=== PATIENT | female | born 1950 | race Caucasian/White ===

== ENCOUNTER 2017-02-01 08:45 | Emergency (ER) | payer OTHER ==
[~2017-02-01] VITALS: Ht 165.1 cm; Wt 79.0 kg
[2017-02-01 08:49] VITALS: Ht 165.1 cm; Wt 79.0 kg
--- NOTE | 2017-02-01 10:23 | RADRPT ---
PROCEDURE: XR Chest. CLINICAL INDICATION: Chest Pain. TECHNIQUE: Single frontal view of the chest was obtained COMPARISON: None FINDINGS: There is fullness in the superior mediastinum, likely exaggerated by the portable nature of the film . The cardiac silhouette is unremarkable. The lungs are clear. There is no pleural effusion or pneumothorax. The bones and soft tissue show no acute change. IMPRESSION: No acute abnormalities are identified on this single view. RPTAT:AAJJ Physician Melissa Date Time Electronically viewed and signed by Physician Melissa on 02/01/2017 10:23 JUSTIN/
[2017-02-01] MEDS ORDERED: ASPI-664 PO (10:30)
[2017-02-01] MEDS ORDERED: SIMV10TA PO (10:35)
[2017-02-01] MEDS ORDERED: HYDR12.58 PO (10:35)
[2017-02-01] MEDS ORDERED: LOSA25TA5 PO (10:36)
[2017-02-01] MEDS ORDERED: RANI150T5 PO (10:36)
--- NOTE | 2017-02-01 10:43 | ERD ---
ER Documentation Chief Complaint Date/Time DATE: 02/01/17 TIME: 10:39 Chief Complaint CHEST PAIN , LT ARM PAIN AND NUMBNESS X 3 DAYS , WORSE TODAY HPI Patient is a 67-year-old female who presents with gradual onset, constant, moderate, dull pain to her left upper chest, shoulder, lateral neck, and left arm for the last 4-5 days. She states that it occasionally subsides, but is generally present throughout the day. Is now been present continuously since 5: 30 AM. She reports feeling mild shortness of breath that she describes as not being able to take a deep breath. She denies pain on deep inspiration. She reports intermittent numbness to her left arm. She denies worsening of symptoms with exertion. She reports that certain movements of her neck exacerbate symptoms. ROS All systems reviewed and are negative except as per history of present illness. Medications Home Meds Active Scripts Cyclobenzaprine Hcl* (Cyclobenzaprine Hcl*) 10 Mg Tablet, 10 MG PO Q8 Y for PAIN , #21 TAB Prov:CELESTE CARPIO MD 02/01/17 Ibuprofen* (Ibuprofen*) 600 Mg Tablet, 600 MG PO Q8, #20 TAB Prov:CELESTE CARPIO MD 02/01/17 Reported Medications Losartan Potassium* (Losartan Potassium*) 25 Mg Tablet, 25 MG PO DAILY, TAB 02/01/17 Ranitidine Hcl* (Ranitidine Hcl*) 150 Mg Tablet, 150 MG PO Q12 Y for PRN, #60 TAB 02/01/17 Hydrochlorothiazide* (Hydrochlorothiazide*) 12.5 Mg Tablet, 12.5 MG PO QAM, #30 TAB 02/01/17 Simvastatin* (Zocor*) 10 Mg Tablet, 5 MG PO QHS, #30 TAB 02/01/17 Aspirin* (Aspirin* EC) 81 Mg Tablet.dr, 81 MG PO DAILY, TAB 02/01/17 Allergies Allergies: Coded Allergies: No Known Allergy (Unverified , 02/01/17) PMhx/Soc Past medical history: Hypertension, hyperlipidemia Past surgical history: No recent surgery Social history: Denies tobacco or alcohol, denies illicit drugs History of Surgery: No Anesthesia Reaction: No Hx Neurological Disorder: No Hx Respiratory Disorders: No Hx Cardiac Disorders: No Hx Psychiatric Problems: No Hx Miscellaneous Medical Probl: Yes (HTN, Cholesterol) Hx Alcohol Use: No Hx Substance Use: No Hx Tobacco Use: No Smoking Status: Never smoker FmHx Family History: diabetes, No coronary disease Physical Exam Vitals Vital Signs Date Time Temp Pulse Resp B/P Pulse Ox O2 Delivery O2 Flow Rate FiO2 02/01/17 14:56 98.1 76 18 142/84 100 Room Air 02/01/17 11:36 98.3 62 17 136/92 100 Room Air 02/01/17 08:49 98.2 72 18 197/97 96 Physical Exam Const: Alert, no acute distress Head: Atraumatic Eyes: Normal Conjunctiva, No pallor, no icterus ENT: Normal External Ears, Nose and Mouth.Mucous membranes moist Neck: Full range of motion..~ No meningismus.Left paraspinal tenderness. Neck extension exacerbates pain in her left arm. Resp: Clear to auscultation bilaterally, No wheezes, no rales. Left upper chest tenderness, palpation reproduces symptoms. Cardio: Regular rate and rhythm, no murmurs Abd: Soft, non tender, non distended. Skin: No petechiae or rashes Back: No midline or flank tenderness Ext: No cyanosis, or edema Neur: Awake and alert, Cranial nerves II through XII intact bilaterally, strength and sensation full in 4 extremities. Psych: Normal Mood and Affect Result Diagram: 02/01/1715 02/01/17 0915 Results 24 hrs Laboratory Tests Test 02/01/17 09:15 White Blood Count 8.310^3/ul Red Blood Count 4.5610^6/ul Hemoglobin 13.8g/dl Hematocrit 42.9% Mean Corpuscular Volume 94.1fl Mean Corpuscular Hemoglobin 30.3pg Mean Corpuscular Hemoglobin Concent 32.2g/dl Red Cell Distribution Width 13.0% Platelet Count 80436^3/UL Mean Platelet Volume 13.9fl Neutrophils % 76.0% Lymphocytes % 17.4% Monocytes % 5.7% Eosinophils % 0.1% Basophils % 0.6% Nucleated Red Blood Cells % 0.0/100WBC Neutrophils # (Manual) 6.310^3/ul Lymphocytes # 1.410^3/ul Monocytes # 0.510^3/ul Eosinophils # 0.010^3/ul Basophils # 0.110^3/ul Nucleated Red Blood Cells # 0.010^3/ul Sodium Level 146mmol/L Potassium Level 4.0mmol/L Chloride Level 105mmol/L Carbon Dioxide Level 31mmol/L Anion Gap 14 Blood Urea Nitrogen 16mg/dl Creatinine 0.71mg/dl Glucose Level 115mg/dl Calcium Level 9.4mg/dl Total Bilirubin 0.1mg/dl Direct Bilirubin 0.00mg/dl Indirect Bilirubin 0.1mg/dl Aspartate Amino Transf (AST/SGOT) 25IU/L Alanine Aminotransferase (ALT/SGPT) 31IU/L Alkaline Phosphatase 115IU/L Troponin I < 0.012ng/ml B-Type Natriuretic Peptide 203PG/ML Total Protein 8.3g/dl Albumin 4.3g/dl Globulin 4.00g/dl Albumin/Globulin Ratio 1.07 Procedures/MDM EKG read by me: Time 859, rate 71 Rhythm: Normal sinus [place]: Normal Intervals: Normal ST-T waves: no ischemic changes Ectopy: No Q-waves: No Impression: No evidence of ischemia or arrhythmia MDM: Patient is a 67-year-old female who presents with pain in her left upper chest, shoulder, neck and left arm. On exam she is reproducible pain with signs of muscle spasm as well as radicular findings with worsening symptoms with neck extension. Her symptoms are not suggestive of coronary ischemia, pulmonary embolism, or aortic dissection. She has a normal chest x-ray. She has a normal EKG. She has a negative troponin in the setting of constant symptoms for 4 days. There is no neurologic deficit or findings to suggest a central nervous system etiology. I will discharge the patient with Motrin and Flexeril prescriptions, and advised her to follow-up further with her PMD. Advised her on the use of a heating pad. I have advised her on return precautions. Departure Diagnosis: Primary Impression: Cervical radiculopathy Additional Impression: Chest wall pain Condition: CELESTE Estrella MD Feb 01, 2017 10:43
[2017-02-01 12:27] LABS: ABNORMAL IP MESSAGE 1; BASOPHIL # 0.1 10^3/ul (0.0-0.1); BASOPHILS % 0.6 % (0.0-2.0); EOSINOPHILS % 0.1 % (0.0-7.0); HEMATOCRIT 42.9 % (37.0-47.0); HEMOGLOBIN 13.8 g/dl (12.0-16.0); LYMPHOCYTES # 1.4 10^3/ul (0.8-2.9); LYMPHOCYTES % 17.4 % (15.0-51.0); MEAN CORPUSCULAR HEMOGLOBIN 30.3 pg (29.0-33.0); MEAN CORPUSCULAR HGB CONC 32.2 g/dl (32.0-37.0); MEAN CORPUSCULAR VOLUME 94.1 fl (82.0-101.0); MEAN PLATELET VOLUME 13.9 fl (7.4-10.4); MONOCYTE # 0.5 10^3/ul (0.3-0.9); MONOCYTES % 5.7 % (0.0-11.0); PLATELET COUNT 213 10^3/UL (140-415); RED BLOOD COUNT 4.56 10^6/ul (4.20-5.40); WHITE BLOOD COUNT 8.3 10^3/ul (4.8-10.8)
[2017-02-01 12:47] LABS: POSITIVE DIFF @See below
[2017-02-01 13:02] LABS: ALANINE AMINOTRANSFERASE 31 IU/L (13-69); ALBUMIN 4.3 g/dl (3.3-4.9); ALBUMIN/GLOBULIN RATIO 1.07; ALKALINE PHOSPHATASE 115 IU/L (42-121); ANION GAP 14 (8-16); ASPARTATE AMINO TRANSFERASE 25 IU/L (15-46); BILIRUBIN,INDIRECT 0.1 mg/dl (0-1.1); BILIRUBIN,TOTAL 0.1 mg/dl (0.2-1.3); BLOOD UREA NITROGEN 16 mg/dl (7-20); CALCIUM 9.4 mg/dl (8.4-10.2); CARBON DIOXIDE 31 mmol/L (21-31); CHLORIDE 105 mmol/L (97-110); CREATININE 0.71 mg/dl (0.44-1.00); GLUCOSE 115 mg/dl (70-220); SODIUM 146 mmol/L (135-144); TOTAL PROTEIN 8.3 g/dl (6.1-8.1)
[2017-02-01 13:15] LABS: TROPONIN-I < 0.012 ng/ml (0.00-0.12)
[2017-02-01 13:32] LABS: B-TYPE NATRIURETIC PEPTIDE 203 PG/ML (0-125)
[2017-02-01] MEDS ORDERED: CYCL-319 PO (13:35)
[2017-02-01] MEDS ORDERED: IBUP-1542 PO (13:35)
[2017-02-01 14:56] VITALS: BP 142/84; PULSE 76; RESP 18; TEMP 98.1
== END 2017-02-01 14:58 | disposition home or self-care (01) ==
LOC: E/R 08:45
DX: M54.12 Radiculopathy, cervical region (principal); R07.89 Other chest pain; I10 Essential (primary) hypertension; Z79.82 Long term (current) use of aspirin
CPT/HCPCS: 36415; 71010; 80053; 83880; 84484; 85025; 93005